=== PATIENT | male | born 1945 | race Caucasian/White ===

== ENCOUNTER → 2020-08-20 | Outpatient (CLI) | payer OTHER, SELFPAY ==
[~2020-08-20] VITALS: Ht 182.9 cm; Wt 90.7 kg
== END ==
LOC: OPSV 08:00
DX: M31.6 Other giant cell arteritis (principal)
CPT/HCPCS: 96365; 96375; J1720

== ENCOUNTER → 2020-09-17 | Outpatient (CLI) | payer OTHER, SELFPAY ==
[~2020-09-17] VITALS: Ht 182.9 cm; Wt 90.7 kg
[2020-09-17 09:27] LABS: HEMOGLOBIN 16.5 gm/dl (14.0-17.5); RED BLOOD COUNT 4.89 M/UL (4.20-5.50); WHITE BLOOD COUNT 9.9 K/UL (4.5-11.0)
[2020-09-17 10:08] LABS: BUN/CREATININE RATIO 22 (0-10)
== END ==
LOC: OPSV 08:52
PROVIDERS: Internal Medicine
DX: M31.6 Other giant cell arteritis (principal)
CPT/HCPCS: 80053; 85027; 96365; 96375; J1720

== ENCOUNTER → 2020-10-15 | Outpatient (CLI) | payer OTHER, SELFPAY ==
[~2020-10-15] VITALS: Ht 182.9 cm; Wt 90.7 kg
== END ==
LOC: OPSV 08:57
DX: M31.6 Other giant cell arteritis (principal)
CPT/HCPCS: 96365; 96375; J1720

== ENCOUNTER → 2020-11-12 | Outpatient (CLI) | payer OTHER, SELFPAY ==
[~2020-11-12] VITALS: Ht 182.9 cm; Wt 90.7 kg
[2020-11-12 09:50] LABS: HEMOGLOBIN 16.9 gm/dl (14.0-17.5); RED BLOOD COUNT 4.94 M/UL (4.20-5.50)
[2020-11-12 10:11] LABS: BUN/CREATININE RATIO 16 (0-10)
== END ==
LOC: OPSV 08:57
PROVIDERS: Internal Medicine
DX: M1A.9XX0 Chronic gout, unspecified, without tophus (tophi) (principal); M31.6 Other giant cell arteritis; Z79.899 Other long term (current) drug therapy
CPT/HCPCS: 36415; 80053; 80061; 84550; 85025; 85652; 86140; 96365; 96375; J1720

== ENCOUNTER → 2020-12-10 | Outpatient (CLI) | payer OTHER, SELFPAY ==
[~2020-12-10] VITALS: Ht 182.9 cm; Wt 90.7 kg
== END ==
LOC: OPSV 08:47
DX: M31.6 Other giant cell arteritis (principal)
CPT/HCPCS: 96365; 96375; J1720

== ENCOUNTER → 2021-01-07 | Outpatient (CLI) | payer OTHER, SELFPAY ==
[~2021-01-07] VITALS: Ht 182.9 cm; Wt 90.7 kg
[2021-01-07 09:30] LABS: HEMOGLOBIN 16.5 gm/dl (14.0-17.5); RED BLOOD COUNT 4.75 M/UL (4.20-5.50); WHITE BLOOD COUNT 8.1 K/UL (4.5-11.0)
[2021-01-07 09:58] LABS: BUN/CREATININE RATIO 14 (0-10)
== END ==
LOC: OPSV 09:00
PROVIDERS: Internal Medicine
DX: M31.6 Other giant cell arteritis (principal)
CPT/HCPCS: 80053; 85027; 96365; 96375; J1720

== ENCOUNTER → 2021-01-16 | Outpatient (CLI) | payer OTHER | LOC: CT 10:55 | DX: M31.6 Other giant cell arteritis (principal); I70.0 Atherosclerosis of aorta; I70.208 Unspecified atherosclerosis of native arteries of extremities, other extremity | CPT/HCPCS: 36415; 82565; Q9965 ==